=== PATIENT | female | born 1955 | race African-American/Black ===

== ENCOUNTER 2021-01-22 08:16 | Emergency (ER) | payer OTHER ==
[~2021-01-22] VITALS: Ht 167.6 cm; Wt 68.0 kg
[2021-01-22] MEDS ORDERED: ONDANSETRON HCL 4MG/2ML INJ IV ONE (09:45)
[2021-01-22] MEDS ORDERED: MORPHINE SULFATE 4 MG/ML CPJ (NOT FOR IM USE) IV ONE (09:45)
[2021-01-22 10:59] LABS: BASOPHILS % 0.4 % (0.0-2.0); HEMATOCRIT. 39.2 % (36.0-48.0); HEMOGLOBIN. 13.5 g/dL (12.0-16.0); LYMPHOCYTES % 13.5 % (20.0-50.0); MEAN CORPUSCULAR HEMOGLOBIN 35.1 pg (28.0-32.0); MEAN CORPUSCULAR VOLUME 102.2 fL (81.0-99.0); MEAN PLATELET VOLUME 7.3 fl (7.4-10.4); MONOCYTES % 9.6 % (2.0-8.0); NEUTROPHILS % 76.5 % (40.0-76.0); PLATELET 229 x1000/uL (130-400); RED BLOOD CELL COUNT 3.84 mill/uL (4.2-5.4); RED CELL DISTRIBUTION WIDTH 13.5 % (11.6-14.6)
[2021-01-22 11:03] LABS: CHLORIDE 106 mEq/L (98-107)
[2021-01-22 11:06] LABS: INR 1.1; PROTHROMBIN TIME 12.2 sec (9.6-11.0)
[2021-01-22 11:08] LABS: ETHANOL BLOOD < 10 mg/dL
[2021-01-22 12:13] LABS: ETHANOL BLOOD < 10 mg/dL
[2021-01-22 14:23] LABS: CLARITY URINE CLEAR (CLEAR); COLOR URINE DARK YELLOW (YELLOW); KETONES URINE TRACE (NEGATIVE); LEUKOCYTE ESTERASE URINE NEGATIVE (NEGATIVE); NITRITE URINE NEGATIVE (NEGATIVE); OCCULT BLOOD URINE 1+ (NEGATIVE); PH URINE 7.5 (4.5-8.0); PROTEIN URINE TRACE (NEGATIVE); SPECIFIC GRAVITY URINE 1.045 (1.005-1.030)
[2021-01-22] MEDS ORDERED: MORPHINE SULFATE 2 MG/ML CPJ (NOT FOR IM USE) IV ONE (14:30)
[2021-01-22] MEDS ORDERED: IOHEXOL-350 100 ML BOTTLE ONE (14:41)
[2021-01-22 15:02] LABS: CANNABINOID URINE SCREEN NEGATIVE (NEGATIVE); METHADONE URINE SCREEN NEGATIVE (NEGATIVE); OPIATES URINE SCREEN PRESUMTIVE POSITIVE (NEGATIVE); PHENCYCLIDINE URINE SCREEN NEGATIVE (NEGATIVE)
[2021-01-22 15:03] LABS: *AMPHETAMINES SCREEN URINE NEGATIVE (NEGATIVE); *BARBITURATES SCREEN URINE NEGATIVE (NEGATIVE); *BENZODIAZEPINES SCREEN URINE NEGATIVE (NEGATIVE); *COCAINE SCREEN URINE NEGATIVE (NEGATIVE)
[2021-01-22 16:00] VITALS: BP 154/105
[2021-01-22] MEDS ORDERED: THIA50TA12 MT (16:14)
[2021-01-22] MEDS ORDERED: PROT20 MT (16:14)
[2021-01-22] MEDS ORDERED: ONDA4TAB5 MT (16:14)
== END 2021-01-22 16:43 | disposition home or self-care (01) ==
LOC: ER 08:16 → CANBEDREQ 18:51
DX: R10.30 Lower abdominal pain, unspecified (principal); B17.9 Acute viral hepatitis, unspecified; E87.2 Acidosis; K76.0 Fatty (change of) liver, not elsewhere classified; R63.4 Abnormal weight loss; F17.210 Nicotine dependence, cigarettes, uncomplicated; Z68.24 Body mass index [BMI] 24.0-24.9, adult
CPT/HCPCS: 36415; 71045; 74174; 76705; 80053; 80305; 80307; 80320; 81003; 82248; 83605; 83690; 83880; 84145; 84484; 85025; 85610; 87040; 87086; 93005; 96374; 96375; 99285; J2270; J2405; Q9967; G0480